=== PATIENT | male | born 1955 | race Caucasian/White ===

== ENCOUNTER → 2016-05-22 | Outpatient (CLI) | payer BC ==
[2016-05-22 06:08] LABS: BASOPHILS # (AUTO) 0.02 10*3/UL; BASOPHILS % (AUTO) 0.5 % (0-1); EOSINOPHILS % (AUTO) 2.6 % (0-8); HEMATOCRIT 42.8 % (42.0-52.0); HEMOGLOBIN 14.7 g/dL (14.0-18.0); IMM GRAN % (AUTO) 0.3 % (0-5); IMM GRAN# (AUTO) 0.01 10*3/UL; LYMPHOCYTES # (AUTO) 0.95 10*3/uL; LYMPHOCYTES % (AUTO) 25.1 % (10-50); MEAN CORPUSCULAR HEMOGLOBIN 30.5 PG (27-31); MEAN CORPUSCULAR HGB CONC 34.3 g/dL (33-37); MEAN PLATELET VOLUME 11.1 FL (7.4-12.2); MONOCYTES # (AUTO) 0.36 10*3/UL (0.3-0.8); MONOCYTES % (AUTO) 9.5 % (5-15); NEUTROPHILS # (AUTO) 2.34 10*3/UL; RDW COEFFICIENT OF VARIATION 13.9 % (11.5-14.5); RED BLOOD COUNT 4.82 10^6/uL (4.70-6.10); WHITE BLOOD COUNT 3.78 10^3/uL (4.8-10.8)
[2016-05-22 06:11] LABS: PLATELET MORPHOLOGY COMMENT NORMAL MORPHOLOGY (NORM)
[2016-05-22 06:21] LABS: ASPARTATE AMINO TRANSFERASE 29 IU/L (21-57); BILIRUBIN,TOTAL 0.9 mg/dL (0.3-1.2); BLOOD UREA NITROGEN 12 mg/dL (7-22); CALCIUM 9.2 mg/dL (8.7-10.7); CHLORIDE 107 meq/L (98-112); CREATININE 0.8 mg/dL (0.70-1.50); EST GLOMERULAR FILTRATION > 60 (>60 ml/min/1.73m(2)); GLUCOSE 102 mg/dL (78-110); HDL CHOLESTEROL 38 mg/dL (40-150); POTASSIUM 4.1 meq/L (3.8-5.2); SODIUM 145 meq/L (135-145); TOTAL PROTEIN 6.6 g/dL (6.1-8.0); TRIGLYCERIDES 45 mg/dL (44-200)
== END ==
LOC: LAB 05:39
PROVIDERS: ATTEND Internal Medicine
DX: E78.5 Hyperlipidemia, unspecified (principal); R35.1 Nocturia; K21.9 Gastro-esophageal reflux disease without esophagitis; G93.3 Postviral and related fatigue syndromes; F17.210 Nicotine dependence, cigarettes, uncomplicated; Z12.5 Encounter for screening for malignant neoplasm of prostate
CPT/HCPCS: 36415; 80053; 80061; 82550; 84443; 85025; G0103